=== PATIENT | female | born 2000 | race Two or more races ===

== ENCOUNTER 2024-12-05 04:43 | Emergency (ER) | payer SELFPAY ==
[~2024-12-05] VITALS: Ht 165.1 cm; Wt 52.2 kg
[2024-12-05] MEDS ORDERED: NEOMY/BACITRA/POLYMYXIN B OINT UD PACKET TP ONE (05:14)
[2024-12-05] MEDS ORDERED: IBUPROFEN 400 MG TABLET ONE (05:21)
[2024-12-05] MEDS: IBUPROFEN 400 MG TABLET PO ONE (05:23)
[2024-12-05] MEDS ORDERED: NAPR500T6 PO (05:28)
[2024-12-05] MEDS ORDERED: CYCL5TAB PO (05:28)
[2024-12-05 06:53] VITALS: BP 108/78; O2SAT 97
== END 2024-12-05 06:50 | disposition home or self-care (01) ==
LOC: ER 04:48
DX: S06.0XAA Concussion with loss of consciousness status unknown, initial encounter (principal); S00.531A Contusion of lip, initial encounter; S10.93XA Contusion of unspecified part of neck, initial encounter; S70.12XA Contusion of left thigh, initial encounter; S00.81XA Abrasion of other part of head, initial encounter; F17.290 Nicotine dependence, other tobacco product, uncomplicated; Y04.0XXA Assault by unarmed brawl or fight, initial encounter; Y93.89 Activity, other specified; Y92.89 Other specified places as the place of occurrence of the external cause; Y99.8 Other external cause status
CPT/HCPCS: A4606; A4663